=== PATIENT | male | born 1975 | race Caucasian/White ===

== ENCOUNTER 2024-07-07 15:50 | Outpatient (AMB) | payer OTHER, SELFPAY ==
--- NOTE | 2024-07-07 15:51 | A.OFFPC_ITS ---
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 Accompanied by: Self / Same As Patient Allergies No Known Allergies Allergy (Verified 07/07/24 16:34) Medication List - Last Reconciled 07/07/24 by Cass Alford PA-C atorvastatin 20 mg PO DAILY cholecalciferol (vitamin D3) 25 mcg PO DAILY coenzyme Q10 100 mg PO DAILY sildenafil (Viagra) 50 mg PO DAILY PRN Tobacco use date assessed: 07/07/24 Dental Screening Dental Screen Date: 07/07/24 Did you have a dental visit in the last 12 months?: Yes Did you have a dental problem in the last 6 months where you did not have access to dental care?: No Was dental information given to patient?: Patient has dentist HPI Hypercholesterolemia HPI Details The patient is a 49-year-old male presenting for a wellness check and management of chronic issues. He has been diagnosed with hyperlipidemia and manages this condition with atorvastatin 20 mg daily. He has a history of vitamin D deficiency and takes supplements to address this issue. Erectile dysfunction is noted, although the patient has not used Viagra for the past three years. The patient reported new symptoms consistent with a possible inguinal hernia, including a reducible bulge in the left groin area. He also experiences sciatica on the left side, exacerbated by physical exertion, but has been managing this with lifestyle adjustments, including notable weight loss through intermittent fasting. The patient wishes to pursue a colonoscopy for preventative care and expressed his interest in formalizing plans for potential hernia and sciatica management. A family history of blood cancer is noted, with the father recently from a condition described as pre-leukemia. 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 - Family Status: with two childr en, an 18-year-old son and a 16-year-old daughter. - Exercise: Engages in regular physical activity as part of occupational duties. - Weight Management: Lost approximately 20 pounds through intermittent fasting and lifestyle adjustments. - Dietary Habits: Practices intermittent fasting but consumes [employer] regularly. - Family: No relationship with mother, r ecent loss of father. [facility] Medical History Erectile dysfunction Inguinal hernia Family history of leukemia Family history of heart disease Mild hypercholesterolemia Hyperlipidemia Establishing care with new doctor, encounter for Overweight with body mass index (BMI) of 29 to 29.9 in adult Back pain with sciatica Vitamin D deficiency Family History Father Heart problem Blood disorder Diabetes Mother No problems noted. Social History Housing: House Alcohol intake: current Alcohol intake frequency: holidays/special occasions only Patient Tobacco Use Status: Never used Tobacco service: No Current occupational status: employed Cognitive needs: No Hearing needs: No Vision needs: Yes (rx glasses) Questionnaire PHQ-9 Over the last 2 weeks, how often have you been bothered by any of the following problems? 1. Little interest or pleasure in doing things: not at all 2. Feeling down, depressed, or hopeless: not at all 3. Trouble falling or staying asleep, or sleeping too much: not at all 4. Feeling tired or having little energy: not at all 5. Poor appetite or overeating: not at all 6. Feeling bad about yourself - or that you are a failure or have let yourself or your family down: not at all 7. Trouble concentrating on things, such as reading the newspaper or watching television: not at all 8. Moving or speaking so slowly that other people could have noticed. Or the opposite - being so fidgety or restless that you have been moving around a lot more than usual: not at all 9. Thoughts that you would be better off or of hurting yourself in some way: not at all Total score: 0 Depression Screening Interpretation: Negative Depression Screening Done: Yes 19067 - PHQ-9 Billing: Patient declined-do not bill Source: Developed by Drs. Tee Reina, Devora Paredes, Garry Berrios and colleagues, with an educational aleyda from [email or web address]. Thrive Questionnaire Date Thrive assessed: 07/07/24 I am a: Patient What is your living situation today?: I have a steady place to live Within the past 12 months, did the food you bought not last and you didn't have the money to get more?: Never true Within the past 12 months, did you worry whether your food would run out before you got money to buy more?: Never true Do you have trouble paying for medicines?: No Do you have trouble getting transportation to medical appointments?: No Do you have trouble paying your heating and electricity bill?: No Do you have trouble taking care of your child, family member or friend?: No Do you have trouble with day-to-day activities such as bathing, preparing meals, shopping, managing finances, etc.?: No Are you currently unemployed and looking for a job?: No Are you interested in more education?: No Please select the resources that you would like help with: None THRIVE Score: 0 AUDIT C Alcohol Use Questionnaire (AUDIT-C) 1. How often do you have a drink containing alcohol?: Monthly or less 2. How many drinks containing alcohol do you have on a typical day when you are drinking?: 1 or 2 3. How often do you have six or more drinks on one occasion?: Never Total Score: 1 Score Reviewed/Action Taken: No INOCENCIA-7 AMB Questionnaire INOCENCIA-7 Date INOCENCIA - 7 assessed: 07/07/24 Feeling nervous, anxious, or on edge: 0 = Not at all Not being able to stop or control worryin = Not at all Worrying too much about different things: 0 = Not at all Trouble relaxin = Not at all Being so restless that it is hard to sit still: 0 = Not at all Becoming easily annoyed or irritable: 0 = Not at all Feeling afraid as if something awful might happen: 0 = Not at all Total INOCENCIA-7 score (0-4 normal; 5-9 mild; 10-14 moderate; 15-21 severe): 0 Source: Developed by Drs. Tee Reina, Devora Paredes, Garry Berrios and colleagues, with an educational aleyda from [email or web address]. INOCECNIA-7 Assessment Billing INOCENCIA-7 Assessment Tool: INOCENCIA-7 Assessment 38192 Review of Systems Const Details: - Constitutional: Denies unintentional weight loss, reports weight loss associated with fasting practices. - Cardiovascular: Denies chest pain, palpitations. - Respiratory: Denies shortness of breath. - Gastrointestinal: Reports no changes in bowel habits, acknowledges the need for colonoscopy. - Genitourinary: Reports left groin pain, denies testicular pain. - Musculoskeletal: Reports intermittent sciatica symptoms in the left leg. - Neurological: Denies headaches, dizziness. - Endocrine: Denies heat or cold intolerance. - Hematologic: Reports paternal family history of blood cancer. - Psychiatric: Denies anxiety, depression. Physical exam (Primary Care) Vital Signs: Last Vital Signs Temp 97.8 F 07/07/24 15:53 Pulse 77 07/07/24 15:53 Resp 14 07/07/24 15:53 BP 124/75 07/07/24 15:53 Pulse Ox 97 07/07/24 15:53 Oxygen Delivery Method Room Air 07/07/24 15:53 Care Plan Goal for BP management: <130/90 at Goal BMI result Body Mass Index 29.7 BMI Assessment/Plan discussion: High BMI High, discussed plan: lifestyle, weight reduction, dietary, physical activity and alcohol moderation Tobacco/Smoking Status: Tobacco use Status Tobacco use date assessed 07/07/24 07/07/24 16:00 Patient Tobacco Use Status Never used Tobacco 07/07/24 16:00 PHQ-9: PHQ-9 Score PHQ-9: Total score 0 07/07/24 16:00 Depression Screening Interpretation: Negative Thrive Assessment: Date of Thrive Assessment Date Thrive assessed 07/07/24 07/07/24 16:00 Const Other: Appearance: Alert. Oriented X3. No acute distress. Head: Normal external exam. Normocephalic. Atraumatic. Eyes: Pupils are equal, round, and reactive to light. Extraocular movements intact. Conjunctiva and sclera normal. Eyelids normal. Ears: External auditory canal normal. Tympanic membranes normal. Throat: Pharynx normal. Uvula midline. Moist mucous membranes. Neck: Normal inspection. Neck supple. Full range of motion. No adenopathy. Thyroid Normal. No meningeal signs. No neck mass noted. Cardiovascular: Normal heart rate and rhythm. Heart sound normal. No murmurs noted. Pulses normal throughout. Respiratory: No respiratory distress. Painless inspiration. Breath sounds normal. No wheezes/rales/rhonchi noted. Chest nontender. No accessory muscle usage noted or decreased air movement noted. Abdomen: Soft and nontender. Bowel sounds normal in all 4 quadrants. No distention noted. No organomegaly noted. No visible injury noted. : To left groin questioning inguinal hernia. Not incarcerated. Easily reducible. Back: No costovertebral angle tenderness. Full range of motion noted. Skin: Skin warm and dry. Normal skin color. Normal skin turgor. No ra shes/lesions/lacerations noted. Extremities: No lower extremity edema. Extremities exhibit normal range of motion. Extremities nontender. Neuro: Oriented X 3. No motor deficit. No sensory deficit. Reflexes normal. Coding Level of Care Code New Pt Level 4 (49696) Complex EM visit Add On G2211 Diagnoses Establishing care with new doctor, encounter for Z76.89 Vitamin D deficiency E55.9 Back pain with sciatica M54.9; M54.30 Family history of leukemia Z80.6 Family history of heart disease Z82.49 Mild hypercholesterolemia E78.00 Hyperlipidemia E78.5 Inguinal hernia K40.90 Erectile dysfunction N52.9 Overweight with body mass index (BMI) of 29 to 29.9 in adult E66.3; Z68.29 Additional Codes INOCENCIA-7 Assessment Billing - INOCENCIA-7 Assessment Tool: INOCENCIA-7 Assessment 09181 ([id number]) Assessment & Plan Assessment & Plan (1) Establishing care with new doctor, encounter for: Code(s): Z76.89 - Persons encountering health services in other specified circumstances Category: Medical (2) Vitamin D deficiency: Code(s): E55.9 - Vitamin D deficiency, unspecified Category: Medical Plan: Maintain current supplementation and explore insurance coverage for a formal diagnosis. Condition is chronic and stable continue to monitor. (3) Back pain with sciatica: Code(s): M54.9 - Dorsalgia, unspecified; M54.30 - Sciatica, unspecified side Category: Medical Plan: Provide chiropractic referral for management. Condition is chronic and stable will continue to monitor. (4) Family history of leukemia: Code(s): Z80.6 - Family history of leukemia Category: Medical Plan: Review family history for future health monitoring considerations. (5) Family history of heart disease: Code(s): Z82.49 - Family history of ischemic heart disease and other diseases of the circulatory system Category: Medical Plan: Will continue to monitor patient's cardiac wrist. (6) Mild hypercholesterolemia: Code(s): E78.00 - Pure hypercholesterolemia, unspecified Category: Medical Plan: Continue atorvastatin 20 mg daily and plan routine monitoring of lipid panels. Condition is chronic and stable continue to monitor. (7) Hyperlipidemia: Code(s): E78.5 - Hyperlipidemia, unspecified Category: Medical Plan: Continue atorvastatin 20 mg daily and plan routine monitoring of lipid panels. Condition is chronic and stable continue to monitor. (8) Inguinal hernia: Code(s): K40.90 - Unilateral inguinal hernia, without obstruction or gangrene, not specified as recurrent Category: Medical Plan: Order an ultrasound for confirmation and discuss surgical options if positive. Condition chronic and is stable will continue to monitor. (9) Erectile dysfunction: Code(s): N52.9 - Male erectile dysfunction, unspecified Category: Medical Plan: Refill sildenafil (Viagra) as requested. Condition is chronic and stable continue to monitor. (10) Overweight with body mass index (BMI) of 29 to 29.9 in adult: Code(s): E66.3 - Overweight; Z68.29 - Body mass index [BMI] 29.0-29.9, adult Category: Medical Plan: Patient to continue improving his diet and exercise regimen. Condition is chronic and stable continue to monitor. Plan Plan Patient was informed and verbally consented to the use of an ambient scribe for clinic note documentation during this visit. 1. Hyperlipidemia Continue atorvastatin 20 mg daily and plan routine monitoring of lipid panels. 2. Vitamin D Deficiency Maintain current supplementation and explore insurance coverage for a formal diagnosis. 3. Erectile Dysfunction Refill sildenafil (Viagra) as requested. 4. Possible Inguinal Hernia Order an ultrasound for confirmation and discuss surgical options if positive. 5. Sciatica Provide chiropractic referral for management. 6. Family History Of Blood Cancer Review family history for future health monitoring considerations. I educated the patient on the long-term management and follow-up of his chronic conditions, including hyperlipidemia and vitamin D deficiency. We discussed continuing atorvastatin therapy with monitoring for efficacy and adverse effects. For vitamin D deficiency, we explored potential coverage by insurance f or prescribed supplements. I explained the process for confirming the suspected inguinal hernia, including an ultrasound, and discussed potential surgical repair with mesh to prevent recurrence. Regarding erectile dysfunction, I refilled sildenafil as requested. We also talked about managing his sciatica through chiropractic referral, given his preference over physical therapy. We discussed the colonoscopy procedure, stressing the importance of screening due to his age, and I answered questions about the process and benefits. We reviewed his family history of blood cancer and the implications for ongoing health monitoring. I advised on follow-up visits every six months to monitor his health status and make any necessary adjustments in his management plan. Orders: Orders Comprehensive Edgard. Panel Fast Today Z00.00 - Encounter for general adult medical examination without abnormal findings Hemoglobin A1c Today Z00.00 - Encounter for general adult medical examination without abnormal findings Magnesium Today Z00.00 - Encounter for general adult medical examination without abnormal findings TSH reflex Free T4 Today Z00.00 - Encounter for general adult medical examination without abnormal findings PSA,Total (Free>4and<10) Today Z00.00 - Encounter for general adult medical examination without abnormal findings Vitamin B12 and Folate Today Z00.00 - Encounter for general adult medical examination without abnormal findings Vitamin D 25-OH Total Today Z00.00 - Encounter for general adult medical examination without abnormal findings DHEA Sulfate Today Z00.00 - Encounter for general adult medical examination without abnormal findings Dihydrotestosterone Today Z00.00 - Encounter for general adult medical examination without abnormal findings C Reactive Protein Today Z00.00 - Encounter for general adult medical examination without abnormal findings Complete Blood Count Auto Diff Today Z00.00 - Encounter for general adult medical examination without abnormal findings Erythrocyte Sedimentation Rate Today Z00.00 - Encounter for general adult medical examination without abnormal findings Lipid Panel Today Z00.00 - Encounter for general adult medical examination without abnormal findings Liver Panel Today Z00.00 - Encounter for general adult medical examination without abnormal findings Testosterone, Total Today Z00.00 - Encounter for general adult medical examination without abnormal findings US Extremity Nonvas Limited LT Today K40.90 - Unilateral inguinal hernia, without obstruction or gangrene, not specified as recurrent Referrals Gastroenterology Referral Z12.11 - Encounter for screening for malignant neoplasm of colon Chiropractic Referral M54.30 - Sciatica, unspecified side, M54.9 - Dorsalgia, unspecified Medications: New coenzyme Q10 100 mg PO DAILY 90 caps 1RF cholecalciferol (vitamin D3) 25 mcg PO DAILY 90 caps 1RF E55.9 - Vitamin D deficiency, unspecified Refilled sildenafil (Viagra) administer 30 minutes to 4 hours before activity 50 mg PO DAILY PRN 30 tabs 8RF sexual activity Patient Instructions: - Continue taking atorvastatin 20 mg daily. - Maintain vitamin D supplementation as previously. - Use Viagra as needed for erectile dysfunction. - Schedule the ultrasound for the left groin area. - Contact chiropractor for sciatica management. - Schedule and complete the colonoscopy. - Perform fasting blood work as ordered. - Follow up in 6 months or sooner if symptoms worsen. - Call if you experience any new or worsening symptoms.
[2024-07-07 15:53] VITALS: BP 124/75; PULSE 77; RESP 14; TEMP 36.6; O2SAT 97; BMI 29.7
== END 2024-07-07 16:29 | disposition home or self-care (01) ==
LOC: HO.HMCSH 15:50
PROVIDERS: PCP Internal Medicine; Visit Provider Physician Assistant Medical
DX: Z76.89 Persons encountering health services in other specified circumstances (principal); E55.9 Vitamin D deficiency, unspecified; M54.9 Dorsalgia, unspecified; M54.30 Sciatica, unspecified side; Z80.6 Family history of leukemia; Z82.49 Family history of ischemic heart disease and other diseases of the circulatory system; E78.00 Pure hypercholesterolemia, unspecified; E78.5 Hyperlipidemia, unspecified; K40.90 Unilateral inguinal hernia, without obstruction or gangrene, not specified as recurrent; N52.9 Male erectile dysfunction, unspecified; E66.3 Overweight; Z68.29 Body mass index [BMI] 29.0-29.9, adult

== ENCOUNTER → 2024-07-07 15:50 | Outpatient (BNVA) | payer OTHER, SELFPAY | PROVIDERS: PCP Internal Medicine; Visit Provider Physician Assistant Medical | DX: Z76.89 Persons encountering health services in other specified circumstances (principal); E55.9 Vitamin D deficiency, unspecified; M54.40 Lumbago with sciatica, unspecified side; E78.00 Pure hypercholesterolemia, unspecified; K40.90 Unilateral inguinal hernia, without obstruction or gangrene, not specified as recurrent; N52.9 Male erectile dysfunction, unspecified; E66.3 Overweight; Z68.29 Body mass index [BMI] 29.0-29.9, adult; Z80.6 Family history of leukemia; Z82.49 Family history of ischemic heart disease and other diseases of the circulatory system | CPT/HCPCS: 96127 ==

== ENCOUNTER 2024-08-25 14:27 | Outpatient (REF) | payer OTHER, SELFPAY ==
--- NOTE | ~2024-08-25 | US_ITS ---
CLINICAL HISTORY: K40.90 - Unilateral inguinal hernia, without obstruction or gangrene, no... Ultrasound of the left groin COMPARISON: None FINDINGS: Dedicated ultrasound imaging was performed of the region of concern along the left groin. In the region of concern there is a sleft inguinal hernia with fascial defect measuring approximately 2.4 cm. On cine imaging hernia sac appears to spontaneously reduce. No bowel involvement identified. No fluid collection or radiopaque foreign body. IMPRESSION: 1. Moderate fat containing left inguinal hernia. Hernia sac appears to spontaneously reduced. This document has been electronically signed by: Adan Power MD on 08/25/2024 15:05:56
--- OUTSIDE RECORDS SUMMARY | 2024-08-25 16:45 | XMS_ITS | Patient Health Record ---
Author Organization [facility] Address [address] [place] [address] Care Team Providers Care Pcts Name Role Phone Peewee Ferrell MD Primary Care Provider Unavaila Chacho Jarvis Unavailable [phone] Reason For Referral No Information Problems Problem Type SNOMED Code ICD Code Onset Dates Problem Status W/U Status Risk Notes Problem Bursitis (72512739) Bursitis (727.3) Active confirmed Problem Myositis (43065683) Myositis (729.1) Active confirmed Problem Pain in limb (54215427) Pain in Limb (729.5) Active confirmed Problem Plantar fasciitis (226306760) Plantar Fasciitis (728.71) Active confirmed Plan Of Treatment Pending Test Test Name Order Date X ray : Foot, left 3V 11/11/2012 X ray : Foot, right 3V 11/11/2012 Insurance Providers Payer Name Payer Address Payer Phone Subscriber Number Group Number Insured Name Patient Relationship to Insured Coverage Start Date Coverage End Date [facility] [id number] [place] [phone] [id number] Yury Arriaza Self - patient is the insured Medical (General) History Medical History History ICD Code chicken pox
== END 2024-08-25 14:28 | disposition home or self-care (01) ==
LOC: HO.US 14:27
PROVIDERS: PCP Physician Assistant Medical; Visit Provider Physician Assistant Medical
DX: K40.90 Unilateral inguinal hernia, without obstruction or gangrene, not specified as recurrent (principal)
CPT/HCPCS: 76857

== ENCOUNTER → 2024-08-25 14:29 | Outpatient (BNV) | payer OTHER, SELFPAY | PROVIDERS: PCP Physician Assistant Medical; Visit Provider Radiology Diagnostic Radiology | DX: K40.90 Unilateral inguinal hernia, without obstruction or gangrene, not specified as recurrent (principal) | CPT/HCPCS: 76857 ==

== ENCOUNTER 2024-10-08 09:52 | Outpatient (AMB) | payer OTHER, SELFPAY ==
--- NOTE | 2024-10-08 10:03 | A.OFFVIS_ITS ---
Vital Signs 10/08/24 10:10 Height 5 ft 4 in Weight 176 lb 8 oz BMI 30.3 BP 139/85 Blood Pressure Location Lt brachial Position Sitting Pulse 82 Intake Visit Reasons: Unilateral inguinal hernia Intake Note: Patient is seen in office for evaluation of an inguinal hernia. 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 He 1st noted symptoms in the left side approximately 1 year ago. This was initially attributed to diverticulitis however over time he began to note a palpable lump in the left groin. He is now able to push the lump back in to relieve the symptoms. 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 He denies any nausea, vomiting, constipation, bloody stool or difficulties urinating. The hernia is noted to increase in size with physical exertion but is easily reducible with light pressure. He denies a previous history of abdominal surgeries. [facility] Medical History Left inguinal hernia Erectile dysfunction Inguinal hernia Family history of leukemia Family history of heart disease Mild hypercholesterolemia Hyperlipidemia Establishing care with new doctor, encounter for Overweight with body mass index (BMI) of 29 to 29.9 in adult Back pain with sciatica Vitamin D deficiency Family History Father Heart problem Blood disorder Diabetes Mother No problems noted. Social History Housing: House Alcohol intake: current Alcohol intake frequency: holidays/special occasions only Patient Tobacco Use Status: Never used Tobacco service: No Current occupational status: employed Cognitive needs: No Hearing needs: No Vision needs: Yes (rx glasses) Review of Systems Const All systems reviewed & are unremarkable except as noted in HPI and below Physical Exam Vital Signs: Last Vital Signs Pulse 82 10/08/24 10:10 BP 139/85 10/08/24 10:10 BMI result Body Mass Index 30.3 Const General: cooperative and no acute distress Nutritional Appearance: well nourished Orientation/consciousness: patient oriented x3 Limitations: no limitations HEENT Head: Yes normocephalic and Yes atraumatic Ears: hearing grossly normal bilaterally Resp Effort & Inspection: normal respiratory effort, no audible wheezes, no cough and no respiratory distress Cardio Jugular venous distension: no JVD GI Inspection: Yes normal to inspection Palpation (GI): Soft to palpation, nontender, no guarding, not rigid and Hernia present indirect inguinal on the left Percussion: Yes normal to percussion Skin Other: Warm, dry, no rash Neuro General: patient oriented x3 Extrem General: Yes no clubbing, cyanosis or edema Assessment & Plan Assessment & Plan (1) Left inguinal hernia: Code(s): K40.90 - Unilateral inguinal hernia, without obstruction or gangrene, not specified as recurrent Category: Medical Plan 49-year-old male patient presenting with complaints of a palpable lump in the left groin which increases with lifting and reduces with light pressure. On examination the patient does indeed have a reducible left inguinal hernia which is nontender to palpation. I reviewed the procedure, risks and alternatives of repair of the left inguinal hernia with mesh and he wishes to proceed and gives his consent. This will be scheduled as a short-stay surgery at his convenience. Coding Level of Care Code New Pt Level 4 (44498) Diagnoses Left inguinal hernia K40.90
[2024-10-08 10:10] VITALS: BP 139/85; PULSE 82; BMI 30.3
--- OUTSIDE RECORDS SUMMARY | 2024-10-08 10:26 | XMS_ITS | Patient Health Record ---
Author [facility] Address [address] [place] [address] Care Team Providers Care Public Relations Professional Name Role Phone Peewee Ferrell MD Primary Care Provider Unavaila Chacho Jarvis Unavailable [phone] Reason For Referral No Information Problems Problem Type SNOMED Code ICD Code Onset Dates Problem Status W/U Status Risk Notes Problem Bursitis (34161825) Bursitis (727.3) Active confirmed Problem Myositis (78398789) Myositis (729.1) Active confirmed Problem Pain in limb (22369273) Pain in Limb (729.5) Active confirmed Problem Plantar fasciitis (030318176) Plantar Fasciitis (728.71) Active confirmed Plan Of Treatment Pending Test Test Name Order Date X ray : Foot, left 3V 11/11/2012 X ray : Foot, right 3V 11/11/2012 Insurance Providers Payer Name Payer Address Payer Phone Subscriber Number Group Number Insured Name Patient Relationship to Insured Coverage Start Date Coverage End Date [facility] [id number] [place] [id number] [phone] [id number] Yury Arriaza Self - patient is the insured Medical (General) History Medical History History ICD Code chicken pox
== END 2024-10-08 10:22 | disposition home or self-care (01) ==
LOC: HO.HGS 09:53
PROVIDERS: PCP Physician Assistant Medical; Visit Provider Surgery
DX: K40.90 Unilateral inguinal hernia, without obstruction or gangrene, not specified as recurrent (principal)
CPT/HCPCS: 99204

== ENCOUNTER 2024-10-15 08:22 | Outpatient (REF) | payer OTHER, SELFPAY ==
--- OUTSIDE RECORDS SUMMARY | 2024-10-15 08:30 | XMS_ITS | Patient Health Record ---
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 Name Role Phone Peewee Ferrell MD Primary Care Provider Unavaila Chacho Jarvis Unavailable [phone] Reason For Referral No Information Problems Problem Type SNOMED Code ICD Code Onset Dates Problem Status W/U Status Risk Notes Problem Bursitis (70260521) Bursitis (727.3) Active confirmed Problem Myositis (14748861) Myositis (729.1) Active confirmed Problem Pain in limb (88833268) Pain in Limb (729.5) Active confirmed Problem Plantar fasciitis (768528553) Plantar Fasciitis (728.71) Active confirmed Plan Of Treatment Pending Test Test Name Order Date X ray : Foot, left 3V 11/11/2012 X ray : Foot, right 3V 11/11/2012 Insurance Providers Payer Name Payer Address Payer Phone Subscriber Number Group Number Insured Name Patient Relationship to Insured Coverage Start Date Coverage End Date [employer] [id number] [place]N [place] [id number] [phone] [id number] Yury Arriaza Self - patient is the insured Medical (General) History Medical History History ICD Code chicken pox
[2024-10-15 08:39] LABS: MANUAL DIFF FLAG NO
[2024-10-15 09:03] LABS: Hematocrit 43.2 % (42.0-52.0); Hemoglobin 14.8 g/dl (14.0-18.0); Imm Gran Abs Auto 0.02 X10*3/uL (0.00-0.03); Imm Gran Pct Auto 0.3 % (0.0-0.4); Lymphocytes Absolute Auto 2.9 X10*3/uL (1.2-4.9); Mean Corpuscular HGB Conc 34.3 g/dl (31.0-36.0); Mean Corpuscular Hemoglobin 28.4 pg (27.0-33.0); Mean Corpuscular Volume 82.9 fL (80.0-98.0); NRBC Abs Auto 0.000 X10*3/uL (0.0-0.012); NRBC Pct Auto 0.0 /100WBC (0.0-0.2); Platelet Count 302 X10*3/uL (160-400); Red Blood Count 5.21 X10*6/uL (4.60-5.80); White Blood Count 7.9 X10*3/uL (4.8-10.8)
[2024-10-15 09:27] LABS: Hemoglobin A1C 143.6710 umol/L; Total Hemoglobin (HGBA1C) 3873.9883 umol/L
[2024-10-15 10:09] LABS: Alanine Aminotransferase 25 U/L (0-40); Albumin Level 4.7 g/dL (3.5-5.0); Alkaline Phosphatase 60 U/L (39-117); Anion Gap 12 (12-20); Aspartate Amino Transferase 22 U/L (5-37); Blood Urea Nitrogen 12 mg/dL (9-16); Calcium 9.2 mg/dL (8.4-10.2); Carbon Dioxide 27 mmol/L (22-29); Chloride 105 mmol/L (96-108); Cholesterol 195 mg/dL (<200); Estimated Glomerular Filt Rate > 60; HDL Cholesterol 40 mg/dL (>40); Magnesium 2.0 mg/dL (1.6-2.6); Potassium 4.1 mmol/L (3.3-5.1); Sodium 140 mmol/L (135-145); Total Protein 7.1 g/dL (6.5-8.0); Triglycerides 104 mg/dL (<150)
[2024-10-15 10:26] LABS: PSA,Total (Free>4and<10) 1.48 ng/mL (0.00-4.00)
[2024-10-15 10:40] LABS: Folate 8.2 ng/mL (> or = 4.0); Vitamin B12 552 pg/mL (200-900)
== END 2024-10-15 08:23 | disposition home or self-care (01) ==
LOC: HO.LAB 08:22
PROVIDERS: PCP Physician Assistant Medical; Visit Provider Physician Assistant Medical
DX: Z00.00 Encounter for general adult medical examination without abnormal findings (principal); Z12.5 Encounter for screening for malignant neoplasm of prostate; Z13.6 Encounter for screening for cardiovascular disorders
CPT/HCPCS: 36415; 80053; 80061; 80076; 82248; 82306; 82607; 82627; 82642; 82746; 83036; 83735; 84153; 84403; 84443; 85025; 85652; 86140

== ENCOUNTER 2025-01-05 08:54 | Outpatient (AMB) | payer OTHER, SELFPAY ==
[2025-01-05 08:57] VITALS: BP 118/67; PULSE 98; RESP 14; TEMP 36.7; O2SAT 98; BMI 30.7
--- NOTE | 2025-01-05 08:57 | MHC.PC.OV ---
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 He reports gaining a couple of pounds, with a current weight of 173 lbs noted in the office, although scale accuracy is questionable. The patient has a history of hypercholesterolemia, which is noted to be familial. He is prescribed Lipitor 40 mg and reports taking it in the morning, rather than at night, without any side effects such as muscle cramps. He also takes vitamin D3 and coenzyme Q10 for his cholesterol. Blood work from October showed an LDL of 135. The patient reports having completed a consultation for a hernia and plans to schedule the surgery around March due to a busy work schedule. He also reports using Viagra as needed. Regarding preventative screening, the patient was referred to gastroenterology and subsequently received a Cologuard test kit at home, which he has not yet completed. His recent lab work from October showed a hemoglobin A1c of 5.5, a negative PSA, and normal thyroid and testosterone levels. The patient acknowledges high consumption of sugary drinks like Coke and a need to exercise more. Social History - Employment: The patient is currently employed and reports being very busy with work. - Substance Use: The patient reports drinking a lot of Coke. - Exercise: The patient acknowledges he needs to exercise more and has a history of using a gym ([employer]) late at night, but stopped during the winter. - Family Status: The patient is PFSH Medical History (Updated 01/05/25 @ 09:39 by Cass Alford PA-C) Healthcare maintenance Colon cancer screening Left inguinal hernia Erectile dysfunction Inguinal hernia Family history of leukemia Family history of heart disease Mild hypercholesterolemia Hyperlipidemia Establishing care with new doctor, encounter for Overweight with body mass index (BMI) of 29 to 29.9 in adult Back pain with sciatica Vitamin D deficiency Family History Father Heart problem Blood disorder Diabetes Mother No problems noted. Social History Housing: House Alcohol intake: current Alcohol intake frequency: holidays/special occasions only Patient Tobacco Use Status: Never used Tobacco service: No Current occupational status: employed Cognitive needs: No Hearing needs: No Vision needs: Yes (rx glasses) Questionnaire PHQ-9 Over the last 2 weeks, how often have you been bothered by any of the following problems? 1. Little interest or pleasure in doing things: not at all 2. Feeling down, depressed, or hopeless: not at all 3. Trouble falling or staying asleep, or sleeping too much: not at all 4. Feeling tired or having little energy: not at all 5. Poor appetite or overeating: not at all 6. Feeling bad about yourself - or that you are a failure or have let yourself or your family down: not at all 7. Trouble concentrating on things, such as reading the newspaper or watching television: not at all 8. Moving or speaking so slowly that other people could have noticed. Or the opposite - being so fidgety or restless that you have been moving around a lot more than usual: not at all 9. Thoughts that you would be better off or of hurting yourself in some way: not at all Total score: 0 Depression Screening Interpretation: Negative Depression Screening Done: Yes 61971 - PHQ-9 Billing: Patient declined-do not bill Source: Developed by Drs. Tee Reina, Devora Paredes, Garry Berrios and colleagues, with an educational aleyda from [employer]. Thrive Questionnaire Date Thrive assessed: 07/07/24 I am a: Patient What is your living situation today?: I have a steady place to live Within the past 12 months, did the food you bought not last and you didn't have the money to get more?: Never true Within the past 12 months, did you worry whether your food would run out before you got money to buy more?: Never true Do you have trouble paying for medicines?: No Do you have trouble getting transportation to medical appointments?: No Do you have trouble paying your heating and electricity bill?: No Do you have trouble taking care of your child, family member or friend?: No Do you have trouble with day-to-day activities such as bathing, preparing meals, shopping, managing finances, etc.?: No Are you currently unemployed and looking for a job?: No Are you interested in more education?: No Please select the resources that you would like help with: None THRIVE Score: 0 AUDIT C Alcohol Use Questionnaire (AUDIT-C) 1. How often do you have a drink containing alcohol?: Monthly or less 2. How many drinks containing alcohol do you have on a typical day when you are drinking?: 1 or 2 3. How often do you have six or more drinks on one occasion?: Never Total Score: 1 Score Reviewed/Action Taken: No INOCENCIA-7 AMB Questionnaire INOCENCIA-7 Date INOCENCIA - 7 assessed: 07/07/24 Feeling nervous, anxious, or on edge: 0 = Not at all Not being able to stop or control worryin = Not at all Worrying too much about different things: 0 = Not at all Trouble relaxin = Not at all Being so restless that it is hard to sit still: 0 = Not at all Becoming easily annoyed or irritable: 0 = Not at all Feeling afraid as if something awful might happen: 0 = Not at all Total INOCENCIA-7 score (0-4 normal; 5-9 mild; 10-14 moderate; 15-21 severe): 0 Source: Developed by Drs. Tee Reina, Devora Paredes, Garry Berrios and colleagues, with an educational aleyda from [employer]. INOCENCIA-7 Assessment Billing INOCENCIA-7 Assessment Tool: INOCENCIA-7 Assessment 53641 Review of Systems Const Details: - Constitutional: Reports a slight weight gain. - Eyes: Reports blurry vision without glasses and a recent change in his prescription. - Ears: Denies any problems with hearing. - Musculoskeletal: Denies muscle cramps. - Genitourinary: Reports occasional use of Viagra for erectile dysfunction. All systems reviewed & are unremarkable except as noted in HPI and below Physical exam (Primary Care) Vital Signs: Last Vital Signs Temp 98.0 F 01/05/25 08:57 Pulse 98 01/05/25 08:57 Resp 14 01/05/25 08:57 BP 118/67 01/05/25 08:57 Pulse Ox 98 01/05/25 08:57 Oxygen Delivery Method Room Air 01/05/25 08:57 Care Plan Goal for BP management: <140/90 at Goal BMI result Body Mass Index 30.7 BMI Assessment/Plan discussion: High BMI High, discussed plan: lifestyle, weight reduction, dietary, physical activity, alcohol moderation and other Tobacco/Smoking Status: Tobacco use Status Tobacco use date assessed 01/05/25 01/05/25 09:02 Patient Tobacco Use Status Never used Tobacco 01/05/25 09:02 PHQ-9: PHQ-9 Score PHQ-9: Total score 0 01/05/25 09:02 Depression Screening Interpretation: Negative Thrive Assessment: Date of Thrive Assessment Date Thrive assessed 07/07/24 01/05/25 09:02 Const Other: Appearance: Alert. Oriented X3. No acute distress. Head: Normal external exam. Normocephalic. Atraumatic. Eyes: Pupils are equal, round, and reactive to light. Extraocular movements intact. Conjunctiva and sclera normal. Eyelids normal. Ears: External auditory canal normal. Tympanic membranes normal. No problems hearing. Throat: Pharynx normal. Uvula midline. Moist mucous membranes. Neck: Normal inspection. Neck supple. Full range of motion. Cardiovascular: Normal heart rate and rhythm. Heart sound normal. No murmurs noted. Pulses normal throughout. Respiratory: No respiratory distress. Painless inspiration. Breath sounds normal. No wheezes/rales/rhonchi noted. No accessory muscle usage noted or decreased air movement noted. Abdomen: Soft and nontender. No distention noted. No organomegaly noted. Back: No costovertebral angle tenderness. Full range of motion noted. Skin: Skin warm and dry. Normal skin color. Normal skin turgor. No rashes/lesions/lacerations noted. Extremities: No lower extremity edema. Extremities exhibit normal range of motion. Neuro: Oriented X 3. No motor deficit. No sensory deficit. Reflexes normal. Office Procedures Flu Questionnaire Does the patient have a severe egg allergy?: No Does the patient have severe life threatening allergies?: No Does the patient have a fever or illness today?: No Has the patient ever had Guillain-[place] Syndrome?: No Has the patient ever had any past reaction to a flu shot?: No Immunizations Fluarix [id number] (PF) 45 mcg (15 mcg x 3)/0.5 mL IM syringe Performing Provider: Cass Alford PA-C Performing Location: [facility] [place] [facility] Documented (not given) by: KACY Brunson on 01/05/25 09:02 Reason Not Given: Patient Refused Results Reviewed Results Reviewed: - Labs (from October): LDL cholesterol was 135. - Labs (from October): Hemoglobin A1c was 5.5. - Labs (from October): PSA was negative. - Labs (from October): Thyroid function and testosterone levels were normal. Coding Level of Care Code Est Pt Level 4 (57717) Complex EM visit Add On G2211 Diagnoses Mild hypercholesterolemia E78.00 Inguinal hernia K40.90 Colon cancer screening Z12.11 Healthcare maintenance Z00.00 Additional Codes INOCENCIA-7 Assessment Billing - INOCENCIA-7 Assessment Tool: INOCENCIA-7 Assessment 14939 ([id number]) Assessment & Plan Assessment & Plan (1) Mild hypercholesterolemia: Code(s): E78.00 - Pure hypercholesterolemia, unspecified Category: Medical Plan: The patient will continue taking Lipitor 40mg daily. He was counseled that taking it in the morning is acceptable as long as he experiences no muscle cramps. The condition is likely familial and he was advised to decrease sugar intake to manage overall health, as his HbA1c is 5.5. (2) Inguinal hernia: Code(s): K40.90 - Unilateral inguinal hernia, without obstruction or gangrene, not specified as recurrent Category: Medical Plan: The patient has already had a surgical consultation for his hernia. He will self-schedule the surgery, likely around March. (3) Colon cancer screening: Code(s): Z12.11 - Encounter for screening for malignant neoplasm of colon Category: Medical Plan: The patient reported receiving a Cologuard test kit. He was advised to complete the Cologuard test, and if the results are negative, he will not need to proceed with a colonoscopy at this time and can repeat Cologuard screening in 2-3 years. (4) Healthcare maintenance: Code(s): Z00.00 - Encounter for general adult medical examination without abnormal findings Category: Medical Plan: A urinalysis will be ordered to check for blood, protein, or glucose to assess kidney function. Discussed the need for an eye exam due to reported changes in vision. Follow-up can be scheduled on a yearly basis for a physical, unless issues arise sooner. Plan Plan Patient was informed and verbally consented to the use of an ambient scribe for clinic note documentation during this visit. 1. Hypercholesterolemia The patient will continue taking Lipitor 40mg daily. He was counseled that taking it in the morning is acceptable as long as he experiences no muscle cramps. The condition is likely familial and he was advised to decrease sugar intake to manage overall health, as his HbA1c is 5.5. 2. Hernia The patient has already had a surgical consultation for his hernia. He will self-schedule the surgery, likely around March. 3. Colon Cancer Screening The patient reported receiving a Cologuard test kit. He was advised to complete the Cologuard test, and if the results are negative, he will not need to proceed with a colonoscopy at this time and can repeat Cologuard screening in 2-3 years. 4. Health Maintenance A urinalysis will be ordered to check for blood, protein, or glucose to assess kidney function. Discussed the need for an eye exam due to reported changes in vision. Follow-up can be scheduled on a yearly basis for a physical, unless issues arise sooner. I reviewed the patient's recent lab work from October, noting that his LDL cholesterol was 135 while on medication and his hemoglobin A1c was 5.5, which is close to the prediabetic range. We discussed his medication regimen, and I confirmed that taking his Lipitor in the morning is acceptable since he is not experiencing side effects. I advised him to complete the Cologuard test he received at home, explaining that a negative result would allow him to defer a colonoscopy. I informed the patient that I will order a urinalysis to check his kidney function. He will proceed with scheduling his hernia surgery independently. We agreed that given his overall stability, he can transition from six-month follow-ups to an annual physical exam, and he can schedule his next one when he wishes. Orders: Orders Influenza [id number] Immunization Today Z23 - Encounter for immunization UA CC w/rflx Micro + Cult Today Z00.00 - Encounter for general adult medical examination without abnormal findings Patient Instructions: - Continue taking Lipitor 40 mg daily. - It is okay to take your Lipitor in the morning as long as it does not cause muscle aches. - Complete the Cologuard test kit that you received at home for your colon cancer screening. - If the Cologuard test is negative, you do not need to get a colonoscopy at this time. - Please go to a lab to provide a urine sample for the new test that was ordered. - You should schedule an appointment with an eye doctor to have your vision checked. - You can schedule your hernia surgery at your convenience. - Try to reduce your intake of sugary drinks and increase your physical activity. - You can schedule your next appointment for an annual physical exam.
--- OUTSIDE RECORDS SUMMARY | 2025-01-05 09:44 | XMS_ITS | Patient Health Record ---
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 Name Role Phone Peewee Ferrell MD Primary Care Provider Unavaila Chacho Jarvis Unavailable [phone] Reason For Referral No Information Problems Problem Type SNOMED Code ICD Code Onset Dates Problem Status W/U Status Risk Notes Problem Bursitis (04130487) Bursitis (727.3) Active confirmed Problem Myositis (76568307) Myositis (729.1) Active confirmed Problem Pain in limb (84253699) Pain in Limb (729.5) Active confirmed Problem Plantar fasciitis (789931804) Plantar Fasciitis (728.71) Active confirmed Plan Of Treatment Pending Test Test Name Order Date X ray : Foot, left 3V 11/11/2012 X ray : Foot, right 3V 11/11/2012 Insurance Providers Payer Name Payer Address Payer Phone Subscriber Number Group Number Insured Name Patient Relationship to Insured Coverage Start Date Coverage End Date [facility] [id number] [place]N [place] [id number] [phone] [id number] Yury Arriaza Self - patient is the insured Medical (General) History Medical History History ICD Code chicken pox
== END 2025-01-05 09:32 | disposition home or self-care (01) ==
LOC: HO.HMCSH 08:54
PROVIDERS: PCP Physician Assistant Medical; Visit Provider Physician Assistant Medical
DX: E78.00 Pure hypercholesterolemia, unspecified (principal); K40.90 Unilateral inguinal hernia, without obstruction or gangrene, not specified as recurrent; Z12.11 Encounter for screening for malignant neoplasm of colon; Z00.00 Encounter for general adult medical examination without abnormal findings; Z23 Encounter for immunization

== ENCOUNTER → 2025-01-05 08:54 | Outpatient (BNVA) | payer OTHER, SELFPAY | PROVIDERS: PCP Physician Assistant Medical; Visit Provider Physician Assistant Medical | DX: Z00.00 Encounter for general adult medical examination without abnormal findings (principal); K40.90 Unilateral inguinal hernia, without obstruction or gangrene, not specified as recurrent; E78.00 Pure hypercholesterolemia, unspecified; Z28.21 Immunization not carried out because of patient refusal; Z79.899 Other long term (current) drug therapy | CPT/HCPCS: 90471; 96127 ==

== ENCOUNTER 2025-02-22 10:52 | Outpatient (AMB) | payer OTHER, SELFPAY ==
--- NOTE | 2025-02-22 10:54 | MHC.OFFVIS ---
Vital Signs 02/22/25 11:01 Height 5 ft 4 in Weight 174 lb BMI 29.9 BP 110/68 Blood Pressure Location Rt brachial Position Sitting Pulse 88 Pulse Source Pulse Oximeter Pulse Oximetry (%) 99 Oxygen Delivery Method Room Air Intake Visit Reasons: Harvey scrn. Office r/s x1. 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 CC: Pt denies any GI sx or concerns. Pt does report having some LLQ + L hip pain which he states is related to the inguinal hernia which is being managed by [facility] [place] [facility] Gen Sx. 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 Office r/s x1.: Details: 49 year old? male here today for pre colonoscopy screening.? Patient was sent to us by his PCP.? This is his first colonoscopy screening.? Patient denies any gastrointestinal symptoms in the past or at present.? Patient does report left lower quadrant pain of occasionally after he stands for a long time. Patient was diagnosed with left inguinal hernia and saw general surgeon. He did postpone his surgery due to his mother's illness. Patient denies any abdominal pain otherwise. Reports that he is moving his bowels without any issues. Denies any personal or family history of gastrointestinal disease, colon polyps, or CRC.? Denies history of difficulty with sedation or anesthesia in the past.? Negative for history of sleep apnea.? Denies any history of cardiac, renal, pulmonary, or hepatic disease.?? No history of infectious? diseases like hepatitis A, B, C, HIV or tuberculosis.? Patient is not on any anticoagulation [facility] Medical History Healthcare maintenance Colon cancer screening Left inguinal hernia Erectile dysfunction Inguinal hernia Family history of leukemia Family history of heart disease Mild hypercholesterolemia Hyperlipidemia Establishing care with new doctor, encounter for Overweight with body mass index (BMI) of 29 to 29.9 in adult Back pain with sciatica Vitamin D deficiency Family History Father Heart problem Blood disorder Diabetes Mother No problems noted. Social History (Updated 02/22/25 @ 11:00 by CHIDI Lockett) Housing: House Alcohol intake: current Alcohol intake frequency: holidays/special occasions only Patient Tobacco Use Status: Never used Tobacco Substance Use Type: Marijuana service: No Current occupational status: employed Cognitive needs: No Hearing needs: No Vision needs: Yes (rx glasses) Review of Systems Const Denies weight gain and Denies weight loss ENT Reports no additional complaints, Denies dysphagia and Denies odynophagia Card Reports no additional complaints Resp Reports no additional complaints GI Denies abdominal pain, Denies belching, Denies melena, Denies bloating, Denies change in bowel habits, Denies dysphagia, Denies excessive flatus, Denies dyspepsia, Denies heartburn, Denies diarrhea, Denies loose stools, Denies nausea, Denies odynophagia and Denies vomiting Reports no additional complaints Musc Reports no additional complaints Neuro Reports no additional complaints Psych Reports no additional complaints Endo Reports no additional complaints Physical Exam Vital Signs: Last Vital Signs Pulse 88 02/22/25 11:01 BP 110/68 02/22/25 11:01 Pulse Ox 99 02/22/25 11:01 Oxygen Delivery Method Room Air 02/22/25 11:01 BMI result Body Mass Index 29.9 Const General: healthy appearing, no acute distress and well developed Nutritional Appearance: well nourished Orientation/consciousness: patient oriented x3 Resp Effort & Inspection: normal respiratory effort, able to speak in complete sentences, no tracheal deviation and symmetric chest movement Auscultation: clear to auscultation bilaterally Cardio Rate: regular rate GI Inspection: Yes normal to inspection and No distended Palpation (GI): Soft to palpation, not firm, nontender and No hepatosplenomegaly present Auscultation: normal bowel sounds General: Yes no CVA tenderness Back/Spine/Pelvis Back: no CVA tenderness Skin General skin exam: elasticity normal, turgor normal and dry skin Neuro General: patient oriented x3 Psych Appearance: grossly normal Mental Status: mental status grossly normal Assessment & Plan Assessment & Plan (1) Colon cancer screening: Code(s): Z12.11 - Encounter for screening for malignant neoplasm of colon Category: Medical Plan Patient denies any GI, cardiac or respiratory symptoms.? Diagnosed with left inguinal hernia, however if patient has no trouble he can proceed with colonoscopy. Patient denies ever have being constipated or having sudden left lower quadrant pain. Pain is worse when he is on his feet for a long time. Denies any issues with anesthesia in the past.? Denies any history of sleep apnea.? No history infectious diseases in the past or present.? Not on any anticoagulation therapy.? No family or personal history of colon cancer or polyps.? Patient denies melena, hematochezia, unintentional weight loss or ribbon like stools.? Discussed at length the pre-procedure,? prep, diet & medications as well as what to expect prior, during and after the procedure.?? Stressed the importance of good bowel prep.? Recommended the use of Vaseline or Calmoseptine OTC & baby wipes with bowel movements to promote comfort.? ?Patient verbalizes understanding and agrees to plan of care.? He was given the opportunity to ask questions and all questions answered.? We will see his after the procedure.? Orders: Referrals GI Procedure Notification Z12.11 - Encounter for screening for malignant neoplasm of colon Medications: New bisacodyl (Dulcolax (bisacodyl)) take 4 tabs at noon the day before your colonoscopy 20 mg (4 x 5 mg) PO ONCE 4 tabs 0RF constipation 1 day Z12.11 - Encounter for screening for malignant neoplasm of colon polyethylene glycol 3350 (Miralax) As directed by gastroenterology department at [facility] 238 grams PO ONCE 238 grams 0RF Z12.11 - Encounter for screening for malignant neoplasm of colon Coding Level of Care Code New Pt Level 3 (15666) Diagnoses Colon cancer screening Z12.11 Time Spent (min) 40 Comment 30 minutes spent with patient and additional 10 minutes spent reviewing his records
[2025-02-22 11:01] VITALS: BP 110/68; PULSE 88; O2SAT 99; BMI 29.9
== END 2025-02-22 11:17 | disposition home or self-care (01) ==
LOC: HO.HGI 10:53
PROVIDERS: PCP Physician Assistant Medical; Visit Provider Nurse Practitioner Family
DX: Z01.818 Encounter for other preprocedural examination (principal); Z12.11 Encounter for screening for malignant neoplasm of colon
CPT/HCPCS: 99203